=== PATIENT | female | born 1940 | race Caucasian/White ===

== ENCOUNTER 2023-09-05 09:52 | Emergency (ER) | payer OTHER, SELFPAY ==
[2023-09-05 09:55] VITALS: BP 144/98
[2023-09-05 10:32] LABS: % Basophils 0.5 % (0-2); % Eosinophils 1.7 % (0-6); % Immature Granulocytes 0.7 % (0-0.5); % Lymphocytes 18.2 % (20.5-51.1); % Monocytes 6.4 % (1.7-9.3); % Neutrophils 72.5 % (42.2-75.2); Absolute Eosinophils 0.1 10^3/uL (0-0.7); Absolute Immature Granulocytes 0.1 10^3/uL (0-0.05); Absolute Lymphocytes 1.4 10^3/uL (1.2-3.4); Absolute Monocytes 0.5 10^3/uL (0.1-0.6); Absolute Neutrophils 5.6 10^3/uL (1.4-6.5); Hematocrit 35.7 % (37.0-47.0); Hemoglobin 10.8 g/dL (12.0-16.0); Mean Corp Hgb Conc. 30.3 g/dL (33.0-37.0); Mean Corpuscular Hgb 25.2 pg (27.0-31.0); Mean Corpuscular Volume 83.2 fL (81.0-99.0); Mean Platelet Volume 10.2 fL (7.4-10.4); Nucleated Red Blood Cells % 0 %; Platelet Count 202 10^3/uL (130-400); Red Blood Cell Count 4.29 10^6/uL (4.20-5.40); Red Cell Dist. Width 15.6 % (11.5-14.5); White Blood Cell Count 7.7 10^3/uL (4.8-10.8)
[2023-09-05 10:42] LABS: INR 1.47; PT 17.7 Sec (11.4-14.6)
[2023-09-05 10:43] LABS: ALT (SGPT) 15 U/L (0-35); AST (SGOT) 25 U/L (14-36); Alkaline Phosphatase 62 U/L (38-126); Blood Urea Nitrogen 10 mg/dl (7-17); Calcium 11.1 mg/dl (8.4-10.2); Carbon Dioxide 31 mmol/L (22-30); Chloride 105 mmol/L (98-107); Glucose 133 mg/dl (70-99); Sodium 142 mmol/L (135-145); Total Bilirubin 0.5 mg/dl (0.2-1.3); Total Protein 6.6 g/dl (6.3-8.2); eGFR > 60.00
[2023-09-05 11:47] LABS: TSH 1.43 uIU/ml (0.47-4.68)
--- NOTE | 2023-09-05 15:07 | ED.GENMED ---
History of Present Illness
General
Chief Complaint: Heart Rate Problem
Source: patient
Exam Limitations: none
Time Seen by Provider: 09/05/23 14:47
Nursing documentation reviewed up to this point in time: agreed with
Travel History
Have you had any contact with someone who has COVID-19?: No
Do you have any symptoms of coronavirus? Fever > 100 degrees, chills, cough, shortness of breath, sore throat, loss of taste or smell, muscle aches, or headache?: No
History of Present Illness
History of Present Illness:
Patient is 83-year-old female with history of A-fib hypertension on Coumadin, diabetes presents to the ER for evaluation. She reports earlier today she was sitting on her sofa reading a book when she had some mild heart patient's about 4 to 5
minutes. She had no associated shortness of breath or chest pain. She currently is asymptomatic. She is on Coumadin but does report last week she was out of it and just started it back up again Monday 2 days ago. She was called by Coumadin nurse
stating that her INR was low . She takes 2.5 mg daily and on Monday was instructed to take 1-1/2 tablets and today take 1 and tomorrow take 1-1/2 she is followed by cardiology Dr. Gabino Lucas at [facility]
Past History
Past History
ED Past Medical History: HTN, NIDDM and Other (bladder CA 10 yrs ago)
ED Past Surgical History: Gynecological
Social History
Tobacco: Non-smoker
Alcohol: None
Personal:
Living: alone
Review of Systems
Review of Systems
Allergies reviewed?: Yes
All Other Systems: ROS reviewed and negative except as documented in HPI and ROS
Constitutional: Reports no symptoms; Denies fever, fatigue or chills
EENT: Reports no symptoms
Respiratory: Denies trouble breathing
Cardiac: Reports palpitations; Denies chest pain, diaphoresis or syncope
ABD/GI: Reports no symptoms
: Reports no symptoms
Musculoskeletal: Reports no symptoms
Skin: Reports no symptoms
Neurological: Reports no symptoms
Psychiatric: Reports no symptoms
Phy Exam
General Physical Exam
General Presentation: no apparent distress
General age: appears stated age
General Skin: warm and dry
General Habitus: normal
General Mental: alert
General Hydration: dry mucous membranes
Cardiovascular Exam
Cardiovascular Exam: regular rate/rhythm and normal peripheral pulses
Pulmonary Exam
Pulmonary Exam: lungs clear and no respiratory distress
Neurological Exam
Neurological Exam: alert and oriented x3
Musculoskeletal Exam
Musculoskeletal Exam: full ROM
Skin Exam
Skin Exam: normal color and warm/dry
Psychiatric Exam
Psychiatric Exam: normal mood/affect
Course
Orders/Labs/Results
Orders:
Orders
09/05/23 09:54
ECG [Electrocardiogram (*1)] Urgent
Reason for Study: Palpitations
09/05/23 09:55
EKG- Treatment ONCE
09/05/23 10:22
Complete Blood Count/With Diff Urgent
Comprehensive Metabolic Panel Urgent
INR [Prothrombin Time] Urgent
TSH Urgent
Abnormal Lab Results
09/05/23
10:22
Hgb 10.8 L g/dL
(12.0-16.0)
Hct 35.7 L %
(37.0-47.0)
MCH 25.2 L pg
(27.0-31.0)
MCHC 30.3 L g/dL
(33.0-37.0)
RDW 15.6 H %
(11.5-14.5)
Abs Immat Gran (auto) 0.1 H 10^3/uL
(0-0.05)
Immature Gran % 0.7 H %
(0-0.5)
Lymphocytes % 18.2 L %
(20.5-51.1)
PT 17.7 H Sec
(11.4-14.6)
Carbon Dioxide 31 H mmol/L
(22-30)
Glucose 133 H mg/dl
(70-99)
Calcium 11.1 H mg/dl
(8.4-10.2)
09/05/23 10:22
09/05/23 10:22
Vital Signs
Initial and Last Documented VS:
Initial Vital Signs
Temp Pulse Resp BP Pulse Ox
99.0 F 104 16 144/98 96
09/05/23 09:55 09/05/23 09:55 09/05/23 09:55 09/05/23 09:55 09/05/23 09:55
Last Documented Vital Signs
Temp Pulse Resp BP Pulse Ox
99.0 F 104 16 144/98 96
09/05/23 09:55 09/05/23 09:55 09/05/23 09:55 09/05/23 09:55 09/05/23 09:55
MDM/Problems Addressed
Differential Diagnosis Includes:
not limited to: arrhythmia A-fib dehydration
MDM/Problems Addressed:
Patient is 83-year-old female has a history of A-fib presents for palpitations. Patient typically is unaware of when she is in and out of A-fib. She is followed by cardiology at [facility]. She takes Coumadin however had not to her levels have
been on the lower side. She has a Coumadin nurse who calls her and has been increasing levels over the past 2 days. She presents in mild sinus tachycardia however no acute distress. EKG normal sinus rhythm in the 90s. Patient was monitored here
in normal sinus rhythm.
No complaints of associated chest pain shortness of breath she has no complaints here. Her hemoglobin is stable at 10.8 which is improved from prior. Kidney function is normal. Her TSH is normal. Her INR is low at 1.47. She normally takes 2.5
mg of Coumadin every day. As directed by her Coumadin nurse she took 1-1/2 tablets yesterday 1 today and should take one and a half tabs tomorrow. will have pt call her Coumadin nurse tomorrow for further instruction and follow-up with her
dot net architect at [facility] in the next several days. She is no acute distress is remained asymptomatic and here stable for discharge home.
Chronic conditions affecting care:
afib on coumadin low inr
*Pulse Oximetry
Patient hypoxic: no
*EKG
Interpreted by ED Provider?: Yes
Interpretation: normal
Heart Rate: 95
Rhythm: sinus
QRS Pattern: normal QRS
Ischemia: no ischemia
*Critical Care Note
Total Time (30-74mins, 75-104mins- exclusive of procedures): Not Applicable
ED Attending Note
-
Portions of this chart may have been created with voice recognition software.� Occasional wrong word or��sound alike� substitutions may have occurred due to the inherent limitations of voice recognition software.
Discharge Plan
Departure
Patient Disposition: Home (Routine Discharge)
Date of Disposition: 09/05/23
Time of Disposition: 16:35
Patient with high blood pressure during this ER visit?: Yes
Condition: Fair
Covid-19: Not Applicable
Discharge Problem:
Heart palpitations
Instructions: Palpitations (DC)
Prescriptions:
No Action
pioglitazone 15 mg tablet
15 mg PO DAILY
anastrozole 1 mg tablet
1 mg PO DAILY
lisinopril 20 mg tablet
20 mg PO QPM
metoprolol succinate 100 mg tablet extended release 24 hr
100 mg PO DAILY
paroxetine HCl 20 mg tablet
20 mg PO QPM
glimepiride 4 mg tablet
4 mg PO QPM
rosuvastatin 20 mg tablet
20 mg PO DAILY
warfarin 2.5 mg tablet
2.5 mg PO
Patient Comments:
06/15/22- waiting for gabino lucas [phone] to call back with warfarin dose, called back but doesnot follow up inr with office
tamoxifen 10 mg Tablet
20 mg PO DAILY
Referrals:
Anuel Vu MD [Family Provider] -
Activity Restrictions/Additional Instructions:
As discussed your INR today was low at 1.47. As directed by your Coumadin nurse take 1-1/2 tablets of Coumadin tomorrow and call your Coumadin nurse tomorrow for further instructions. Follow-up with your dot net architect for further reevaluation in
the next several days and return if any worsening of symptoms.
Discharge Date and Time
Print Language: UZBEK
[2023-09-05 16:26] VITALS: BP 136/74
== END 2023-09-05 17:48 | disposition home or self-care (01) ==
LOC: EMR 09:52
PROVIDERS: Emergency Medicine; EMERGENCY PHYSICIAN Student in an Organized Health Care Education/Training Program; FAMILY PHYSICIAN Internal Medicine
DX: R00.2 Palpitations (principal); I48.91 Unspecified atrial fibrillation; I10 Essential (primary) hypertension; E11.9 Type 2 diabetes mellitus without complications; Z79.01 Long term (current) use of anticoagulants; Z85.51 Personal history of malignant neoplasm of bladder
CPT/HCPCS: 99284; 80053; 84443; 85025; 85610; 93005

== ENCOUNTER 2023-12-17 09:44 | Emergency (ER) | payer OTHER, SELFPAY ==
[2023-12-17 09:46] VITALS: BMI 34.8
[2023-12-17 09:48] VITALS: BP 162/75
[2023-12-17 09:50] VITALS: BP 162/75
[2023-12-17 09:59] LABS: % Basophils 0.7 % (0-2); % Eosinophils 3.2 % (0-6); % Immature Granulocytes 0.4 % (0-0.5); % Lymphocytes 21.6 % (20.5-51.1); % Monocytes 7.1 % (1.7-9.3); Absolute Basophils 0.1 10^3/uL (0-0.2); Absolute Eosinophils 0.3 10^3/uL (0-0.7); Absolute Lymphocytes 1.9 10^3/uL (1.2-3.4); Absolute Monocytes 0.6 10^3/uL (0.1-0.6); Hematocrit 32.9 % (37.0-47.0); Hemoglobin 10.1 g/dL (12.0-16.0); Mean Corp Hgb Conc. 30.7 g/dL (33.0-37.0); Mean Corpuscular Hgb 24.6 pg (27.0-31.0); Mean Corpuscular Volume 80.2 fL (81.0-99.0); Mean Platelet Volume 10.1 fL (7.4-10.4); Nucleated Red Blood Cells % 0 %; Platelet Count 224 10^3/uL (130-400); Red Cell Dist. Width 14.7 % (11.5-14.5)
[2023-12-17 10:00] VITALS: BP 134/68
[2023-12-17 10:17] LABS: INR 3.52; PT 35.3 Sec (11.4-14.6)
--- NOTE | 2023-12-17 10:22 | ED.GENMED ---
History of Present Illness
General
Chief Complaint: Urinary Symptoms
Source: patient
Time Seen by Provider: 12/17/23 10:01
History of Present Illness
History of Present Illness:
83-year-old female with past medical history of atrial fibrillation, hypertension, vaw-upwhbcd-kaehqfgpc diabetes, bladder cancer and breast cancer presenting to the emergency department for evaluation after yesterday she had 1 episode of loose
stool, today noticed a streak of blood in her urine and fatigued prompting her to come to the ER. Patient notes feeling a little bit better since arrival to the ER. States she did have a flu vaccine on and was not sure if this may have
contributed to his fatigue and other symptoms. Denies any fevers but admits to feeling hot and cold. Denies any urinary frequency/urgency/dysuria, back or flank pain, nausea or vomiting. No change in oral intake.
Past History
Past History
ED Past Medical History: Arrthythmia, Cancer, HTN, NIDDM and Other (bladder CA 10 yrs ago)
ED Past Surgical History: Gynecological
Social History
Tobacco: Former smoker (Quit over 40 years ago)
Alcohol: None
Drug: None
Personal:
Living: alone
Review of Systems
Review of Systems
All Other Systems: ROS reviewed and negative except as documented in HPI and ROS
Phy Exam
Physical Exam
Physical Exam:
GENERAL: Alert , in no apparent distress
EYE: Clear conjunctiva
NECK: Supple
ENT: mmm.
CARDIAC: Regular rate and rhythm .
LUNGS: Clear breath sounds bilaterally, no acute respiratory distress, no wheezes/rales/rhonchi
ABDOMEN: Soft, without focal tenderness, no r/g, no cvat
NEUROLOGICAL: Alert and oriented
SKIN: Warm and dry, skin intact. No petechiae
MUSCULOSKELETAL: No edema, well perfused.
PSYCH: Normal and appropriate interaction.
Scores
Heart Failure Risk
Heart Failure Risk Score: Not Applicable
Heart Score for Chest Pain Patients
STEMI patient?: Not applicable
Withdrawal Assessment of Alcohol
Withdrawal Assessment Completed?: Not applicable
Course
Orders/Labs/Results
Orders:
Orders
12/17/23 09:52
Complete Blood Count/With Diff Urgent
Comprehensive Metabolic Panel Urgent
INR [Prothrombin Time] Urgent
12/17/23 11:04
Urinalysis Reflex To Culture Urgent
Date Specimen was Collected: 12/17/23
Time Specimen was Collected: 11:02
Urine Microscopic Reflex Cult Urgent
Urine Culture Urgent
MOHIT Source: U
Specimen Description:
Date Specimen was Collected: 12/17/23
Time Specimen was Collected: 11:02
Abnormal Lab Results
12/17/23 12/17/23
09:52 11:04
RBC 4.10 L 10^6/uL
(4.20-5.40)
Hgb 10.1 L g/dL
(12.0-16.0)
Hct 32.9 L %
(37.0-47.0)
MCV 80.2 L fL
(81.0-99.0)
MCH 24.6 L pg
(27.0-31.0)
MCHC 30.7 L g/dL
(33.0-37.0)
RDW 14.7 H %
(11.5-14.5)
PT 35.3 H Sec
(11.4-14.6)
Calcium 10.9 H mg/dl
(8.4-10.2)
Urine Ketones Trace A
(Negative)
Ur Occult Blood Reflex 4+ A
(Negative)
Urine Nitrite (Reflex) Positive A
(Negative)
Urine Bilirubin 1+ A
(Negative)
Urine Urobilinogen 3+ A
(Neg - 1+)
Leukocyte Esterase Rfl 1+ A
(Negative)
Urine RBC >100 A /HPF
(0-2)
Urine WBC (Reflex) 26-30 A /HPF
(0-5)
Urine Bacteria (Reflex) Moderate A
(Negative)
Urine Albumin (Reflex) 2+ A
(Neg - Trace)
12/17/23 09:52
12/17/23 09:52
Vital Signs
Initial and Last Documented VS:
Initial Vital Signs
Pulse Ox
95
12/17/23 09:46
Last Documented Vital Signs
Temp Pulse Resp BP Pulse Ox
98.6 F 59 17 105/62 96
12/17/23 09:50 12/17/23 12:15 12/17/23 12:15 12/17/23 12:01 12/17/23 12:15
MDM/Problems Addressed
Differential Diagnosis Includes:
cystitis, less concern for pyelonephritis, less concern for renal/ureteral colic, less concern for diverticulitis or other bowel pathology, vaccine reaction
MDM/Problems Addressed:
83-year-old female presenting to the emergency department for evaluation of loose stool yesterday, reportedly improved today but today did have blood within her urine. She also admits to some fatigue. No other urinary symptoms. Arrives to the ER
hemodynamically stable and in no acute distress. Physical exam all reassuring. Will check labs and urine. INR ordered as patient is on Coumadin to make sure she is within therapeutic range. Disposition pending
*Pulse Oximetry
Patient hypoxic: no
*Critical Care Note
Total Time (30-74mins, 75-104mins- exclusive of procedures): Not Applicable
Patient Management
Escalation/DeEscalation of care consider admission/obs:
Patient's labs do show mild anemia however this is right around patient's baseline. INR is 3.5 and within normal limits. Urinalysis does show positive nitrites signifying likely urinary tract infection. Does have a history of bladder clear so we
did discuss possibility for closely following up with urology. Will prescribe cefuroxime. Patient aware of return precautions. Stable for discharge home.
ED Attending Note
-
Portions of this chart may have been created with voice recognition software.� Occasional wrong word or��sound alike� substitutions may have occurred due to the inherent limitations of voice recognition software.
Discharge Plan
Departure
Patient Disposition: Home (Routine Discharge)
Date of Disposition: 12/17/23
Time of Disposition: 11:35
Patient with high blood pressure during this ER visit?: Yes
Discharge Problem:
Acute UTI
Instructions: Urinary Tract Infection, Adult (DC)
Prescriptions:
New
cefuroxime axetil 500 mg tablet
500 mg PO BID 10 Days Qty: 20 0RF
No Action
pioglitazone 15 mg tablet
15 mg PO DAILY
anastrozole 1 mg tablet
1 mg PO DAILY
lisinopril 20 mg tablet
20 mg PO QPM
metoprolol succinate 100 mg tablet extended release 24 hr
100 mg PO DAILY
paroxetine HCl 20 mg tablet
20 mg PO QPM
glimepiride 4 mg tablet
4 mg PO QPM
rosuvastatin 20 mg tablet
20 mg PO DAILY
warfarin 2.5 mg tablet
2.5 mg PO
Patient Comments:
06/15/22- waiting for gabino camarena [phone] to call back with warfarin mel[place], called back but doesnot follow up inr with office
tamoxifen 10 mg Tablet
20 mg PO DAILY
Referrals:
Anuel Vu MD [Family Provider] -
Interventions
Interventions:
*Risk Screen - Suicide Last Done: 12/17/23 09:46
*General Assessment Last Done: 12/17/23 09:46
*Neglect/Abuse Screening Last Done: 12/17/23 09:46
ED- Fall Risk Assessment Last Done: 12/17/23 09:46
*ED COVID-19 Vaccine History Last Done: 12/17/23 09:46
*Nursing Disposition Last Done: 12/17/23 12:55
ED-Female Genitourinary Assessment Last Done: 12/17/23 09:46
Discharge Date and Time
Discharge Date/Time: 12/17/23 12:56
Print Language: HEBREW
[2023-12-17 10:28] LABS: ALT (SGPT) 17 U/L (0-35); AST (SGOT) 25 U/L (14-36); Albumin 3.9 g/dl (3.5-5.0); Alkaline Phosphatase 60 U/L (38-126); Blood Urea Nitrogen 12 mg/dl (7-17); Calcium 10.9 mg/dl (8.4-10.2); Carbon Dioxide 29 mmol/L (22-30); Chloride 105 mmol/L (98-107); Estimated Creatinine Clearance 46 ml/min; Glucose 87 mg/dl (70-99); Potassium 4.1 mmol/L (3.5-5.1); Sodium 144 mmol/L (135-145); Total Bilirubin 0.6 mg/dl (0.2-1.3); Total Protein 6.3 g/dl (6.3-8.2); eGFR > 60.00
[2023-12-17 11:00] VITALS: BP 125/85
[2023-12-17 11:26] LABS: Urine Albumin 2+ (Neg - Trace); Urine Bilirubin 1+ (Negative); Urine Character Very Cloudy (Clear); Urine Color Brown; Urine Glucose Negative (Negative); Urine Ketone Trace (Negative); Urine Leukocyte 1+ (Negative); Urine Nitrite Positive (Negative); Urine Occult Blood 4+ (Negative); Urine Specific Gravity 1.015 (<1.030); Urine Urobilinogen 3+ (Neg - 1+)
[2023-12-17 12:01] VITALS: BP 105/62
[2023-12-17 12:02] LABS: Urine Bacteria Moderate (Negative); Urine Red Blood Cell >100 /HPF (0-2); Urine White Cell 26-30 /HPF (0-5)
== END 2023-12-17 12:56 | disposition home or self-care (01) ==
LOC: EMR 09:44
PROVIDERS: Physician Assistant Medical; EMERGENCY PHYSICIAN Emergency Medicine; FAMILY PHYSICIAN Internal Medicine
DX: N39.0 Urinary tract infection, site not specified (principal); D64.9 Anemia, unspecified; I48.91 Unspecified atrial fibrillation; I10 Essential (primary) hypertension; E11.9 Type 2 diabetes mellitus without complications; Z85.3 Personal history of malignant neoplasm of breast; Z85.51 Personal history of malignant neoplasm of bladder; Z87.891 Personal history of nicotine dependence; Z79.01 Long term (current) use of anticoagulants
CPT/HCPCS: 99283; 80053; 81003; 81015; 85025; 85610; 87077; 87086; 87186

== ENCOUNTER → 2024-06-28 06:39 | Outpatient (REF) | payer OTHER, SELFPAY | LOC: RAD 06:39 | PROVIDERS: ATTENDING PHYSICIAN Urology; FAMILY PHYSICIAN Internal Medicine | DX: N20.0 Calculus of kidney (principal); Z85.51 Personal history of malignant neoplasm of bladder | CPT/HCPCS: 76775 ==

== ENCOUNTER → 2024-11-20 10:29 | Outpatient (REF) | payer OTHER, SELFPAY ==
[2024-11-20 12:43] LABS: Blood Urea Nitrogen 13 mg/dl (7-17); Calcium 10.9 mg/dl (8.4-10.2); Carbon Dioxide 30 mmol/L (22-30); Chloride 107 mmol/L (98-107); Glucose 41 mg/dl (70-99); Potassium 4.8 mmol/L (3.5-5.1); Sodium 142 mmol/L (135-145); eGFR > 60.00
== END ==
LOC: REG 10:29
PROVIDERS: ATTENDING PHYSICIAN Urology; FAMILY PHYSICIAN Internal Medicine
DX: Z85.51 Personal history of malignant neoplasm of bladder (principal); R31.0 Gross hematuria
CPT/HCPCS: 36415; 80048

== ENCOUNTER 2025-02-24 16:12 | Emergency (ER) | payer OTHER, SELFPAY ==
[2025-02-24 16:14] VITALS: BP 114/63
[2025-02-24 16:46] LABS: Hematocrit 31.5 % (37.0-47.0); Hemoglobin 9.4 g/dL (12.0-16.0); Mean Corp Hgb Conc. 29.8 g/dL (33.0-37.0); Mean Corpuscular Volume 79.1 fL (81.0-99.0); Nucleated Red Blood Cells % 0 %; Platelet Count 232 10^3/uL (130-400); Red Cell Dist. Width 17.1 % (11.5-14.5)
[2025-02-24 16:55] LABS: ALT (SGPT) 23 U/L (0-35); AST (SGOT) 25 U/L (14-36); Albumin 4.3 g/dl (3.5-5.0); Alkaline Phosphatase 44 U/L (38-126); Blood Urea Nitrogen 18 mg/dl (7-17); Calcium 11.5 mg/dl (8.4-10.2); Carbon Dioxide 29 mmol/L (22-30); Chloride 104 mmol/L (98-107); Glucose 139 mg/dl (70-99); Lipase 128 U/L (23-300); Potassium 4.0 mmol/L (3.5-5.1); Sodium 137 mmol/L (135-145); Total Protein 7.0 g/dl (6.3-8.2); eGFR 48.63
[2025-02-24 19:07] VITALS: BMI 32.4
[2025-02-24 19:11] VITALS: BP 114/59
--- NOTE | 2025-02-24 19:25 | ED.GENMED ---
History of Present Illness
General
Chief Complaint: Abdominal Symptoms
Time Seen by Provider: 02/24/25 19:04
History of Present Illness
History of Present Illness:
85-year-old female with history of A-fib on Coumadin, hyperlipidemia, hypertension, diabetes presenting to the emergency department for belching and vomiting. Patient reports symptoms have been ongoing for the past 5 to 6 days. Notes some
association with food. Has been able to tolerate liquids without issue, however reports decreased p.o. intake secondary to her symptoms. Does note some diarrhea. Denies any known sick contacts. Denies associated chest pain or difficulty
breathing. Denies any abdominal surgeries. Denies fever. Denies ever having this in the past. She has not tried any medications for symptoms. Denies additional acute medical complaint
Past History
Past History
ED Past Medical History: Arrthythmia, Cancer, HTN, NIDDM and Other (bladder CA 10 yrs ago)
ED Past Surgical History: Gynecological
Social History
Tobacco: Former smoker (Quit over 40 years ago)
Alcohol: None
Drug: None
Personal:
Living: alone
Phy Exam
Physical Exam
Physical Exam:
General: Well-appearing, no clinical signs of dehydration, nontoxic and in no acute distress
HEENT: protecting airway
Neck: appears supple
CV: Normal heart rate, regular rhythm
Resp: No accessory muscle use, no increased work of breathing, lungs clear to auscultation bilaterally
Abd: Soft and non-distended, minimal tenderness to the upper abdomen without rebound or guarding
Extremities: No deformities, no swelling
Neuro: alert, no focal neurologic deficit
: deferred
Rectal: deferred
Psych: Normal affect
Skin: Intact
Course
Orders/Labs/Results
Orders:
Orders
02/24/25 16:24
Complete Blood Count/With Diff Urgent
Comprehensive Metabolic Panel Urgent
Lipase Urgent
02/24/25 19:21
Electrocardiogram (*1) Urgent
Reason for Study: Abdominal Pain
02/24/25 19:22
CT Abd/pelvis W Iv Cont Urgent
Comment:
Reason For Exam: generalized abd discomfort, vomiting/belching
EKG- Treatment ONCE
0.9% Sodium Chloride 1000 ml [Nss] 1,000 ml IV BOLUS
Pantoprazole [Protonix IV] 40 mg IV NOW STA
Abnormal Lab Results
02/24/25
16:24
RBC 3.98 L 10^6/uL
(4.20-5.40)
Hgb 9.4 L g/dL
(12.0-16.0)
Hct 31.5 L %
(37.0-47.0)
MCV 79.1 L fL
(81.0-99.0)
MCH 23.6 L pg
(27.0-31.0)
MCHC 29.8 L g/dL
(33.0-37.0)
RDW 17.1 H %
(11.5-14.5)
MPV 11.4 H fL
(7.4-10.4)
Abs Immat Gran (auto) 0.1 H 10^3/uL
(0-0.05)
Immature Gran % 0.6 H %
(0-0.5)
BUN 18 H mg/dl
(7-17)
Creatinine 1.1 H mg/dL
(0.6-1.0)
Glucose 139 H mg/dl
(70-99)
Calcium 11.5 H mg/dl
(8.4-10.2)
02/24/25 16:24
02/24/25 16:24
Vital Signs
Initial and Last Documented VS:
Initial Vital Signs
Temp Pulse Resp BP Pulse Ox
98.6 F 77 16 114/63 94
02/24/25 16:14 02/24/25 16:14 02/24/25 16:14 02/24/25 16:14 02/24/25 16:14
Last Documented Vital Signs
Temp Pulse Resp BP Pulse Ox
98.6 F 69 23 118/51 96
02/24/25 16:14 02/24/25 22:00 02/24/25 22:00 02/24/25 22:00 02/24/25 22:00
MDM/Problems Addressed
MDM/Problems Addressed:
85-year-old female with history of A-fib on Coumadin, hypertension, diabetes, hyperlipidemia presenting for upper abdominal discomfort with nausea and vomiting. Vital signs on arrival are normal.
On exam patient is resting comfortably, no acute distress or discomfort. She is nontoxic in appearance. Overall reassuring examination with minimal tenderness to upper abdomen, no lateralizing tenderness. Lower suspicion for any serious
intra-abdominal process or infection. Ultimately suspect GERD versus gastritis. Labs obtained prior to my assessment. No significant leukocytosis. Normal lipase with lower suspicion for pancreatitis. Patient without chest pain. No present
concern for ACS. Will screen with EKG. Given patient's age and comorbidities, will also obtain CT imaging to ensure no acute pathology. Will treat therapeutically with IV fluids and pantoprazole.
22:20 - CT without acute intra-abdominal pathology. Continue to suspect GERD versus gastritis. Recommending supportive therapy. Feel stable for discharge. Will prescribe Pepcid and Maalox. Return precautions discussed and patient verbalized
understanding
*Pulse Oximetry
SaO2: 92
Oxygen Mode of Delivery: Room air
Patient hypoxic: no
*Critical Care Note
Total Time (30-74mins, 75-104mins- exclusive of procedures): Not Applicable
ED Attending Note
-
Portions of this chart may have been created with voice recognition software.� Occasional wrong word or��sound alike� substitutions may have occurred due to the inherent limitations of voice recognition software.
Discharge Plan
Departure
Prescriptions:
No Action
pioglitazone 15 mg tablet
15 mg PO DAILY
anastrozole 1 mg tablet
1 mg PO DAILY
lisinopril 20 mg tablet
20 mg PO QPM
metoprolol succinate 100 mg tablet extended release 24 hr
100 mg PO DAILY
paroxetine HCl 20 mg tablet
20 mg PO QPM
glimepiride 4 mg tablet
4 mg PO QPM
rosuvastatin 20 mg tablet
20 mg PO DAILY
warfarin 2.5 mg tablet
2.5 mg PO
Patient Comments:
06/15/22- waiting for gabino camarena [phone] to call back with warfarin dose, called back but doesnot follow up inr with office
tamoxifen 10 mg Tablet
20 mg PO DAILY
cefuroxime axetil 500 mg tablet
500 mg PO BID 10 Days Qty: 20 0RF
Referrals:
NONE,* [Active, Internal Medicine]
Interventions
Interventions:
*Risk Screen - Suicide Last Done: 02/24/25 16:14
*General Assessment Last Done: 02/24/25 19:12
*Neglect/Abuse Screening Last Done: 02/24/25 19:12
*ED- Fall Risk Assessment Last Done: 02/24/25 19:12
*ED COVID-19 Vaccine History Last Done: 02/24/25 19:11
*ED Influenza Vaccine History Last Done: 02/24/25 19:11
[id number]-[id number] Assessment Last Done: 02/24/25 19:15
Discharge Date and Time
Print Language: YI
[2025-02-24 20:00] VITALS: BP 122/51
[2025-02-24] MEDS: NSS 1000 IV (20:09)
[2025-02-24] MEDS: PROTONIX IV 40 MG IV (20:10)
[2025-02-24 21:00] VITALS: BP 122/58
[2025-02-24 22:00] VITALS: BP 118/51
== END 2025-02-24 22:50 | disposition home or self-care (01) ==
LOC: EMR 16:12
PROVIDERS: Emergency Medicine; EMERGENCY PHYSICIAN Student in an Organized Health Care Education/Training Program; FAMILY PHYSICIAN Internal Medicine
DX: K29.70 Gastritis, unspecified, without bleeding (principal); E78.5 Hyperlipidemia, unspecified; I10 Essential (primary) hypertension; E11.9 Type 2 diabetes mellitus without complications; I48.91 Unspecified atrial fibrillation; Z79.01 Long term (current) use of anticoagulants; Z87.891 Personal history of nicotine dependence; Z85.51 Personal history of malignant neoplasm of bladder
CPT/HCPCS: 96374; 96361; 99284; 74177; 80053; 83690; 85025; 93005; Q9967